=== PATIENT | male | born 1980 | race Caucasian/White ===

== ENCOUNTER 2017-07-27 17:03 | Emergency (ER) | payer OTHER, BC ==
[~2017-07-27] VITALS: Ht 170.2 cm; Wt 99.8 kg
[~2017-07-27 17:03] MED LIST: FAMOTIDINE20 MG PO
== END 2017-07-27 17:17 | disposition home or self-care (01) ==
LOC: ED 17:03
DX: Z00.8 Encounter for other general examination (principal)

== ENCOUNTER 2021-08-27 14:49 | Emergency (ER) | payer BC ==
[~2021-08-27] VITALS: Ht 170.2 cm; Wt 108.9 kg
--- OUTSIDE RECORDS SUMMARY | 2021-08-27 14:56 | XMS ---
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 EJessica VISIT COUNT (12 MO.) 1 [facility] TOTAL 1 NOTE: Visits indicate total known visits. ED/UCC VISIT TRACKING (12 MO.) 08/27/2021 14:49 [facility] [place] TYPE: Emergency COMPLAINT: - RECTAL PAIN INPATIENT VISIT TRACKING (12 MO.) No inpatient visits to display in this time frame [id number]
[2021-08-27] MEDS ORDERED: LISINOPRIL20 MG PO (15:04)
[2021-08-27] MEDS ORDERED: LIDOCAINE PLUS120 GM PR (15:19)
== END 2021-08-27 15:44 | disposition home or self-care (01) ==
LOC: ED 14:49
DX: K64.5 Perianal venous thrombosis (principal); I10 Essential (primary) hypertension; Z79.899 Other long term (current) drug therapy
CPT/HCPCS: 99282

== ENCOUNTER 2021-09-07 13:34 | Emergency (ER) | payer BC ==
[~2021-09-07] VITALS: Ht 170.2 cm; Wt 110.9 kg
[~2021-09-07 13:34] MED LIST changes: +LIDOCAINE PLUS120 GM PR; +LISINOPRIL20 MG PO
--- OUTSIDE RECORDS SUMMARY | 2021-09-07 13:42 | XMS ---
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 Care History Medical/Surgical 08/28/2021 [facility] - Patient is currently established with [facility]. If patient is seen in the ED during business hours. Please contact CHWs at [facility]. Care Recommendation: If this patient has had 5 or more Emergency Department visits in the last 12 months.\T\nbsp; Patient will require education on the scope and purpose of the ED as an acute care provider not a Primary Care Provider and should not be utilized for chronic conditions.\T\nbsp; These are guidelines and the provider should exercise clinical judgment when providing care. E.D. VISIT COUNT (12 MO.) 2 [facility] TOTAL 2 NOTE: Visits indicate total known visits. ED/UCC VISIT TRACKING (12 MO.) 09/07/2021 13:[address] [facility] [place] TYPE: Emergency COMPLAINT: - POSS HEMORRHOID PROBLEM 08/27/2021 14:[address] [facility] [place] TYPE: Emergency COMPLAINT: - RECTAL PAIN DIAGNOSES: - Perianal venous thrombosis - Other specified diseases of anus and rectum - Other assisted (current) drug therapy - Essential (primary) hypertension INPATIENT VISIT TRACKING (12 MO.) No inpatient visits to display in this time frame [id number]
[2021-09-07] MEDS ORDERED: NITRO-BID1 INCH PR (15:18)
== END 2021-09-07 15:37 | disposition home or self-care (01) ==
LOC: ED 13:34
DX: K64.8 Other hemorrhoids (principal); I10 Essential (primary) hypertension; Z79.899 Other long term (current) drug therapy
CPT/HCPCS: 99282

== ENCOUNTER 2022-01-08 07:45 | Day surgery (SDC) | payer BC ==
[~2022-01-08] VITALS: Ht 170.2 cm; Wt 117.9 kg
[~2022-01-08 07:45] MED LIST changes: +ANUSOL-HC25 MG PR; +COLACE CLEAR50 MG PO; +NITRO-BID1 INCH PR
--- NOTE | 2022-01-08 08:18 | NUR ---
FELL OUTSIDE THIS AM LANDED ON R ELBOW. DID NOT GET CHECKED OUT. STATES NOT HURT.
--- NOTE | 2022-01-08 09:25 | NUR ---
01/08/22 0925 Sofiya Jameson 0970 PT ARRIVED TO PACU ON 6L VIA OXY MASK, PT WAKES EASILY TO VERBAL STUMILI. PT EASILY FALLS BACK TO SLEEP AND SNORING NOTED. VSS.
--- NOTE | 2022-01-08 10:14 | NUR ---
PT ALERT, ORIENTED AND SUPPORTED BY HIS JEAN-PIERRE. PT HERE FOR HIS FIRST SCOPE. ALL QUESTIONS ASKED WERE ANSWERED. SPOUSE WILL REMAIN FOR DC. GAVE BLESSING, WILL FOLLOW NEEDED
--- NOTE | 2022-01-08 16:40 | OR ---
[facility] [address], [place] [address] Signed DATE OF OPERATION: 01/08/2022 SURGEON: Jose Jett MD PREOPERATIVE DIAGNOSES: 1. Hemorrhoids since his 20s. 2. Constipation followed by hard perianal lump at the left lateral position. POSTOPERATIVE DIAGNOSES: 1. Minimal to moderate internal and external hemorrhoids. 2. Minimal sigmoid diverticulosis. PROCEDURE: Colonoscopy biopsy. ESTIMATED BLOOD LOSS: None. INDICATIONS: Hilda is a 41-year-old gentleman, who happens to work at a local [email or web address]. He spoke of hemorrhoids back into his 20s. He said the last 4 to 5 months. He has been having increasing problems. He said he was constipated and developed a painful lump on the left side of his anus. He feels like it comes in and out. He had been to the emergency room twice for evaluation. He was given cortisone suppositories, but apparently he has not used them. He tried the nitroglycerin ointment and of course, that resulted in severe headaches. He therefore discontinued the nitroglycerin ointment. He said overall the pain is slowly improving. The ER doctor told him he had a thrombosed hemorrhoid at the 3 o'clock position. He had been to his primary care provider. He was then asked to see me with respect to the above. He has fiber at home along with some [id number] remedies. He said there is no family history of colon cancer or polyps or inflammatory bowel disease. In the office, he had a small to moderate sized external hemorrhoid at the left lateral position. He has incredibly strong anal sphincter tone. There is no pain in the posterior or anterior midline. Internally, I could feel probably there was a lump at that left lateral position. He said that is the area that has been bothering him. We tried to insert the anoscope, but his sphincter muscles are so strong, he simply pushed all the tissue in the anoscope and nothing could be visualized. I explained to Hilda he really needs a full colonoscopy to make sure nothing else is giving him any trouble, particularly at his age. I had given him our brochure on colonoscopy as well as hemorrhoids. We have been through both the medical and surgical treatment of hemorrhoids. We also discussed colonoscopy in detail. He Electronically Signed By: JOSE JETT MD 01/08/22 [facility] PATIENT NAME: HILDA JOAQUIN OPERATIVE REPORT DATE OF : 76 REPORT #: [id number] PHYSICIAN: JOSE JETT MD PCP: TOMA SIDDIQUI NP REPORT IS CONFIDENTIAL AND NOT TO BE RELEASED WITHOUT AUTHORIZATION [address] [address] Signed understands there is risk including, but not limited to gas bloating, crampy abdominal pain, bleeding, perforation requiring surgery, and missed diagnosis. We also discussed the need for IV conscious sedation. He had expressed understanding and wished to proceed. PROCEDURE NOTE: Hilda was taken into our endoscopy suite and placed in the left lateral decubitus position. He told me overall he thought the pain was better, but he still feels a lump. He was given a total of 150 mcg of fentanyl and 6 mg of Versed to cover the case. A digital rectal exam was performed and once again he has unbelievable anal sphincter tone. Again, I can see and feel the hemorrhoid at the left lateral position. No other palpable concerns. The hemorrhoid to me feels much softer. The adult colonoscope was then introduced and advanced all around into the cecum under direct visualization of the camera without difficulty. His prep was quite good. We could easily see the appendiceal orifice and the ileocecal valve. The scope was then slowly withdrawn. We took pictures throughout for photodocumentation. He does have some diverticula in his distal left colon and sigmoid colon. They were relatively small in size, few in number, and scattered about. The rectum was unremarkable. Upon retroflexion of the scope, it was hard to get a good picture of the anus, but no obvious troublesome internal hemorrhoid columns. After this, the gas was suctioned out and colonoscope removed. Hilda tolerated the procedure quite well. RECOMMENDATIONS: I will see Hilda back in my office in 7 to 14 days to review his results. Jose Jett MD ALB/MODL /[id number] cc: MD Dr. Toma Clemons Electronically Signed By: JOSE JETT MD 01/08/22 1640 PATIENT NAME: HILDA JOAQUIN OPERATIVE REPORT DATE OF : 76 REPORT #: [id number] PHYSICIAN: JOSE JETT MD PCP: TOMA SIDDIQUI NP REPORT IS CONFIDENTIAL AND NOT TO BE RELEASED WITHOUT AUTHORIZATION [facility] [address] [place], [place] [address] Signed Copies: JOSE JETT MD ~ Electronically Signed By: JOSE JETT MD 01/08/22 1640 PATIENT NAME: SHARSUELLENHILDACeci SYLVESTER OPERATIVE REPORT DATE OF : 76 REPORT #: [id number] PHYSICIAN: JOSE JETT MD PCP: TOMA SIDIDQUI NP REPORT IS CONFIDENTIAL AND NOT TO BE RELEASED WITHOUT AUTHORIZATION
== END 2022-01-08 10:00 | disposition home or self-care (01) ==
LOC: DS 07:45 → OPS 07:45
PROVIDERS: ATTEND Colon & Rectal Surgery
PROC: 0DJD8ZZ Inspection of Lower Intestinal Tract, Via Natural or Artificial Opening Endoscopic (ICD-10-PCS; principal; 2022-01-08 09:00)
DX: K64.4 Residual hemorrhoidal skin tags (principal); K64.0 First degree hemorrhoids; K57.30 Diverticulosis of large intestine without perforation or abscess without bleeding; I10 Essential (primary) hypertension; G47.33 Obstructive sleep apnea (adult) (pediatric); E78.5 Hyperlipidemia, unspecified; E66.9 Obesity, unspecified; F17.220 Nicotine dependence, chewing tobacco, uncomplicated; Z68.41 Body mass index [BMI] 40.0-44.9, adult
CPT/HCPCS: 99153; G0500; J2250; J3010; J7121

== ENCOUNTER 2022-07-11 16:13 | Emergency (ER) | payer BC ==
[~2022-07-11] VITALS: Ht 170.2 cm; Wt 117.9 kg
[2022-07-11] MEDS ORDERED: ONDANSETRON ODT8 MG PO (19:19)
== END 2022-07-11 19:31 | disposition home or self-care (01) ==
LOC: ED 16:13
DX: K57.30 Diverticulosis of large intestine without perforation or abscess without bleeding (principal); I10 Essential (primary) hypertension; Z79.899 Other long term (current) drug therapy
CPT/HCPCS: 36415; 74177; 80053; 81001; 83690; 85025; 96361; 96375; 99284-25; J1170; J2405; J7030; Q9967

== ENCOUNTER 2022-09-07 15:10 | Emergency (ER) | payer BC ==
[~2022-09-07] VITALS: Ht 172.7 cm; Wt 92.7 kg
[~2022-09-07 15:10] MED LIST changes: +ONDANSETRON ODT8 MG PO
[2022-09-07] MEDS ORDERED: MIRALAX17 GM PO (17:24)
== END 2022-09-07 21:14 | disposition home or self-care (01) ==
LOC: ED 15:10
DX: R11.2 Nausea with vomiting, unspecified (principal); K59.00 Constipation, unspecified; E86.0 Dehydration; I10 Essential (primary) hypertension; Z79.899 Other long term (current) drug therapy
CPT/HCPCS: 36415; 74177; 80053; 81001; 83735; 85025; 96360; 96361; 99284-25; J7030; Q9967

== ENCOUNTER 2022-10-11 10:53 | Emergency (ER) | payer BC ==
[~2022-10-11] VITALS: Ht 172.7 cm; Wt 90.2 kg
[~2022-10-11 10:53] MED LIST changes: +MIRALAX17 GM PO
== END 2022-10-11 16:25 | disposition home or self-care (01) ==
LOC: ED 10:53
DX: R11.2 Nausea with vomiting, unspecified (principal); F12.90 Cannabis use, unspecified, uncomplicated; B97.4 Respiratory syncytial virus as the cause of diseases classified elsewhere; I10 Essential (primary) hypertension; G47.30 Sleep apnea, unspecified; Z79.899 Other long term (current) drug therapy; Z20.822 Contact with and (suspected) exposure to COVID-19
CPT/HCPCS: 36415; 80053; 83690; 85025; 87502; 96361; 96374; 96375; 99284-25; C9803; J1200; J1790; J7030; U0003

== ENCOUNTER 2022-11-30 13:04 | Emergency (ER) | payer BC ==
[~2022-11-30] VITALS: Ht 172.7 cm; Wt 90.2 kg
[2022-11-30] MEDS ORDERED: PROMETHAZINE HC25 M1 PO (17:53)
== END 2022-11-30 18:08 | disposition home or self-care (01) ==
LOC: ED 13:04
DX: R10.30 Lower abdominal pain, unspecified (principal); R11.2 Nausea with vomiting, unspecified; F12.90 Cannabis use, unspecified, uncomplicated; I10 Essential (primary) hypertension; G47.30 Sleep apnea, unspecified; Z79.899 Other long term (current) drug therapy
CPT/HCPCS: 36415; 80053; 83690; 85025; 96374; 96375; 99284-25; J1200; J1790; J7030

== ENCOUNTER 2023-01-02 18:02 | Emergency (ER) | payer BC ==
[~2023-01-02] VITALS: Ht 172.7 cm; Wt 90.2 kg
[~2023-01-02 18:02] MED LIST changes: +PROMETHAZINE HC25 M1 PO
== END 2023-01-02 20:47 | disposition home or self-care (01) ==
LOC: ED 18:02
DX: R10.13 Epigastric pain (principal); R11.2 Nausea with vomiting, unspecified; F12.90 Cannabis use, unspecified, uncomplicated; I10 Essential (primary) hypertension; G47.30 Sleep apnea, unspecified; Z79.899 Other long term (current) drug therapy
CPT/HCPCS: 36415; 80053; 81003; 83690; 85025; 96374; 96376; 99284-25; J1790; J7030

== ENCOUNTER 2024-03-30 10:34 | Emergency (ER) | payer BC ==
[~2024-03-30] VITALS: Ht 172.7 cm; Wt 85.0 kg
[2024-03-30] MEDS ORDERED: LINZESS145 MCG PO (10:54)
[2024-03-30] MEDS ORDERED: OMEPRAZOLE20 MG PO (10:56)
[2024-03-30] MEDS ORDERED: AMITRIPTYLINE H50 MG PO (10:56)
[2024-03-30] MEDS ORDERED: ESCITALOPRAM OX20 MG PO (10:56)
[2024-03-30] MEDS ORDERED: SODIUM CHLORIDE 0.9% 1,000 ML IV ONE (11:15)
[2024-03-30 11:22] LABS: BASOPHILS 0.5 % (0-2); HEMATOCRIT 44.3 % (35.0-50.0); HEMOGLOBIN 15.1 g/dL (12.0-18.0); LYMPHOCYTES 12.7 % (24-44); MCH 28.5 (27-36); MCV 83.9 fl (81-99); MONOCYTES 5.3 % (0-12); NEUTROPHILS 81.5 % (39-80); PLATELET COUNT 277 K/uL (140-440); RBC 5.28 M/ul (4.3-5.7); RDW 13.3 (10.5-15.0)
[2024-03-30 11:40] LABS: ALBUMIN 3.9 g/dL (3.4-5.0); ALBUMIN/GLOBULIN RATIO 1.3 (1.1-2.4); ANION GAP 13.5 (7-21); BILIRUBIN, TOTAL 0.7 ng/dL (0.2-1.0); BUN/CREATININE RATIO 13.41 (6.0-28.6); CALCIUM 8.9 mg/dL (8.5-10.1); CREATININE, SERUM 0.82 mg/dL (0.70-1.30); POTASSIUM 3.5 mmol/L (3.5-5.1); PROTEIN, TOTAL 6.9 g/dL (6.4-8.2)
[2024-03-30 12:18] LABS: BILIRUBIN, URINE POSITIVE (negative); BLOOD/HGB, URINE NEGATIVE (Negative); KETONE, URINE >=80 (Negative); LEUK ESTERASE, URINE NEGATIVE (negative); NITRITE, URINE NEGATIVE (negative)
[2024-03-30] MEDS ORDERED: ONDANSETRON ODT8 MG PO (13:28)
[2024-03-30] MEDS ORDERED: ONDANSETRON 4 MG TAB ODT SL ONE (13:30)
[2024-03-30 13:39] VITALS: BP 112/78
== END 2024-03-30 13:41 | disposition home or self-care (01) ==
LOC: ED 10:34
PROVIDERS: Emergency Medicine
DX: K58.0 Irritable bowel syndrome with diarrhea (principal); I10 Essential (primary) hypertension; G47.30 Sleep apnea, unspecified; Z79.899 Other long term (current) drug therapy
CPT/HCPCS: 36415; 80053; 81003; 83690; 85025; 96360; 96361; 99284-25; A9270; J7030

== ENCOUNTER 2024-12-07 08:12 | Emergency (ER) | payer BC ==
[~2024-12-07] VITALS: Ht 172.7 cm; Wt 78.0 kg
[~2024-12-07 08:12] MED LIST changes: +AMITRIPTYLINE H50 MG PO; +ESCITALOPRAM OX20 MG PO; +LINZESS145 MCG PO; +OMEPRAZOLE20 MG PO
[2024-12-07] MEDS ORDERED: LISINOPRIL40 MG PO (08:26)
[2024-12-07] MEDS ORDERED: SODIUM CHLORIDE 0.9% 1,000 ML IV ONE (08:45)
[2024-12-07] MEDS ORDERED: ondansetron HCL 4 MG/2 ML VIAL IV ONE (08:45)
[2024-12-07 08:52] LABS: BILIRUBIN, URINE POSITIVE (negative); BLOOD/HGB, URINE NEGATIVE (Negative); KETONE, URINE SMALL (Negative); LEUK ESTERASE, URINE NEGATIVE (negative); NITRITE, URINE NEGATIVE (negative)
[2024-12-07 08:58] LABS: BASOPHILS 0.5 % (0-2); EOSINOPHILS 0.1 % (0-6); HEMATOCRIT 37.8 % (35.0-50.0); HEMOGLOBIN 12.6 g/dL (12.0-18.0); LYMPHOCYTES 22.3 % (24-44); MCH 24.6 (27-36); MCHC 33.4 g/dl (30-36); MCV 73.7 fl (81-99); MONOCYTES 7.3 % (0-12); NEUTROPHILS 69.8 % (39-80); PLATELET COUNT 300 K/uL (140-440); RBC 5.13 M/ul (4.3-5.7)
[2024-12-07 09:09] LABS: ALBUMIN 4.2 g/dL (3.4-5.0); ALBUMIN/GLOBULIN RATIO 1.27 (1.1-2.4); ANION GAP 12.2 (7-21); BILIRUBIN, TOTAL 0.7 ng/dL (0.2-1.0); BUN/CREATININE RATIO 18.94 (6.0-28.6); CALCIUM 9.3 mg/dL (8.5-10.1); CREATININE, SERUM 0.95 mg/dL (0.70-1.30); POTASSIUM 3.2 mmol/L (3.5-5.1); PROTEIN, TOTAL 7.5 g/dL (6.4-8.2)
[2024-12-07] MEDS ORDERED: IRON325 M1 PO (09:34)
[2024-12-07] MEDS ORDERED: ONDANSETRON ODT8 MG PO (09:34)
[2024-12-07] MEDS ORDERED: REGLAN10 MG PO (09:43)
[2024-12-07 09:44] VITALS: BP 125/80
== END 2024-12-07 09:44 | disposition home or self-care (01) ==
LOC: ED 08:12
PROVIDERS: Emergency Medicine
DX: R10.32 Left lower quadrant pain (principal); K57.30 Diverticulosis of large intestine without perforation or abscess without bleeding; I10 Essential (primary) hypertension; G47.30 Sleep apnea, unspecified; Z79.899 Other long term (current) drug therapy
CPT/HCPCS: 36415; 74177; 80053; 81003; 83690; 85025; 99284-25; J2405; J7030; Q9967

== ENCOUNTER 2025-03-30 09:53 | Emergency (ER) | payer BC | END 2025-03-30 11:40 | disposition home or self-care (01) | LOC: ED 09:53 | DX: E86.0 Dehydration (principal); R10.9 Unspecified abdominal pain; I10 Essential (primary) hypertension; G47.33 Obstructive sleep apnea (adult) (pediatric) ==

== ENCOUNTER 2025-05-24 05:55 | Emergency (ER) | payer BC ==
[~2025-05-24] VITALS: Ht 172.7 cm; Wt 80.0 kg
[~2025-05-24 05:55] MED LIST changes: +AMITRIPTYLINE H25 MG PO; +IRON325 M1 PO; +LISINOPRIL40 MG PO; +REGLAN10 MG PO
[2025-05-24 06:23] LABS: BASOPHILS 0.5 % (0.2-1.2); EOSINOPHILS 0.2 % (0.8-7.0); LYMPHOCYTES 15.2 % (21.8-53.1); MCH 25.2 PG (25.7-32.2); MCHC 31.8 g/dL (32.3-36.5); MCV 79.1 fL (79.0-92.2); MONOCYTES 9.0 % (5.3-12.2); NEUTROPHILS 74.8 % (34.0-67.9); RBC 4.89 M/uL (4.63-6.08)
[2025-05-24] MEDS ORDERED: FAMOTIDINE 20 MG/ 2 ML VIAL IV ONE (06:30)
[2025-05-24] MEDS ORDERED: KETOROLAC TROMETHAMINE 30 MG/ML VIAL IV ONE (06:30)
[2025-05-24 06:39] LABS: ALT (SGPT) 16.0 U/L (14-59); AST (SGOT) 8.0 U/L (15-37); GLOMERULAR FILTRATION RATE,EST 105.0 mL/min (>60); PROTEIN, TOTAL 7.7 g/dL (6.4-8.2); UREA NITROGEN 23.0 mg/dL (7-18)
[2025-05-24] MEDS ORDERED: LACTATED RINGER'S 1,000 ML IV ONE (06:45)
[2025-05-24] MEDS ORDERED: MORPHINE SULFATE 4 MG/ML VIAL IV ONE (07:00)
[2025-05-24 08:03] LABS: BLOOD/HGB, URINE NEGATIVE (Negative); KETONE, URINE NEGATIVE (Negative); LEUK ESTERASE, URINE NEGATIVE (negative); NITRITE, URINE NEGATIVE (negative)
[2025-05-24 08:37] VITALS: BP 161/88
--- NOTE | 2025-05-24 21:48 | EKG ---
[facility] [address] [facility] [place] [address] Signed Normal sinus rhythm Normal ECG No previous ECGs available Confirmed by Mica Atkins MD () on 05/24/2025 9:48:20 PM Electronically Signed By: MICA ATKINS MD 05/24/25 2148 PATIENT NAME: RENETTA JOAQUIN HIGINIO Electrocardiogram DATE OF : 76 PHYSICIAN: MICA ATKINS MD REPORT #: [id number] REPORT IS CONFIDENTIAL AND NOT TO BE RELEASED WITHOUT AUTHORIZATION
== END 2025-05-24 08:37 | disposition home or self-care (01) ==
LOC: ED 05:55
PROVIDERS: Internal Medicine
DX: R10.9 Unspecified abdominal pain (principal); R11.2 Nausea with vomiting, unspecified; I10 Essential (primary) hypertension; G47.33 Obstructive sleep apnea (adult) (pediatric)
CPT/HCPCS: 36415; 74177; 80053; 81003; 83690; 83735; 84484; 85025; 93005; 93010; 96375; 99284-25; J1790; J1885; J2270; J2405; J7121; Q9967

== ENCOUNTER 2025-05-31 06:57 | Emergency (ER) | payer BC ==
[~2025-05-31] VITALS: Ht 172.7 cm; Wt 78.5 kg
[2025-05-31] MEDS ORDERED: PANTOPRAZOLE SODIUM 40 MG/10 ML VIAL IV ONE (07:15)
[2025-05-31] MEDS ORDERED: METOCLOPRAMIDE HCL 10 MG/2 ML SDV IV ONE (07:15)
[2025-05-31] MEDS ORDERED: SODIUM CHLORIDE 0.9% 1,000 ML IV ONE (07:15)
[2025-05-31] MEDS ORDERED: IRON325 M1 PO (07:33)
[2025-05-31] MEDS ORDERED: METOCLOPRAMIDE10 MG PO (07:33)
[2025-05-31 07:39] LABS: ALT (SGPT) 13.0 U/L (14-59); AST (SGOT) 13.0 U/L (15-37); GLOMERULAR FILTRATION RATE,EST 107.0 mL/min (>60); PROTEIN, TOTAL 6.8 g/dL (6.4-8.2); UREA NITROGEN 14.0 mg/dL (7-18)
[2025-05-31 07:49] LABS: BASOPHILS 0.3 % (0.2-1.2); EOSINOPHILS 0.2 % (0.8-7.0); LYMPHOCYTES 13.3 % (21.8-53.1); MCH 25.1 PG (25.7-32.2); MCHC 32.2 g/dL (32.3-36.5); MCV 77.8 fL (79.0-92.2); MONOCYTES 7.1 % (5.3-12.2); NEUTROPHILS 78.8 % (34.0-67.9); RBC 4.51 M/uL (4.63-6.08)
[2025-05-31] MEDS ORDERED: ONDANSETRON ODT8 MG PO (08:06)
[2025-05-31 08:18] LABS: BLOOD/HGB, URINE NEGATIVE (Negative); KETONE, URINE SMALL (Negative); LEUK ESTERASE, URINE NEGATIVE (negative); NITRITE, URINE NEGATIVE (negative)
[2025-05-31] MEDS ORDERED: PROCHLORPERAZINE EDISYLATE 10 MG/2 ML VIAL IV ONE (08:30)
[2025-05-31 08:38] LABS: AMPHETAMINES, URINE NEGATIVE (NEGATIVE); BARBITURATES, URINE NEGATIVE (NEGATIVE); BENZODIAZEPINE, URINE NEGATIVE (NEGATIVE); CANNABINOID, URINE POSITIVE (NEGATIVE); COCAINE, URINE NEGATIVE (NEGATIVE); ECSTASY, URINE NEGATIVE (NEGATIVE); FENTANYL, URINE NEGATIVE (NEGATIVE); METHADONE, URINE NEGATIVE (NEGATIVE); OPIATES, URINE NEGATIVE (NEGATIVE); OXYCODONE, URINE NEGATIVE (NEGATIVE); PHENCYCLIDINE, URINE NEGATIVE (NEGATIVE)
[2025-05-31 08:48] VITALS: BP 154/85
== END 2025-05-31 08:48 | disposition home or self-care (01) ==
LOC: ED 06:57
PROVIDERS: Emergency Medicine
DX: R10.9 Unspecified abdominal pain (principal); G89.29 Other chronic pain; R11.0 Nausea; I10 Essential (primary) hypertension; G47.33 Obstructive sleep apnea (adult) (pediatric); Z79.899 Other long term (current) drug therapy
CPT/HCPCS: 36415; 80053; 80307; 81003; 83690; 85025; 96374; 96375; 99284-25; J0780; J1200; J2470; J2765; J7030